=== PATIENT | female | born 1970 | race American Indian/Alaskan Native ===

== ENCOUNTER 2021-09-19 10:28 | Day surgery (SDC) | payer BC ==
--- NOTE | 2021-09-19 07:47 | History and Physical Report ---
History of Present Illness Date of examination: 09/17/21 Chief complaint: dysfunctional uterine bleeding, fibroids, anemia History of present illness: Pt is a 51 year old female who presents for surgical management of dysfunctional uterine bleeding and fibroids. Past History Past Medical History: hematologic disorders (anemia ) Past Surgical History: CABLE [employer]/uterine surgery (tubal ligation ) Family/Genetic History: hypertension Social history: no significant social history - Obstetrical History : 2 Para: 2 Hx # Term Pregnancies: 2 Number of Pregnancies: 0 Spontaneous Abortions: 0 Induced : 0 Number of Living Children: 2 Medications and Allergies Allergies Allergy/AdvReac Type Severity Reaction Status Date / Time No Known Allergies Allergy Unverified 09/12/21 10:38 Home Medications Medication Instructions Recorded Confirmed Last Taken Type RX: No Known Home Medications [No 09/12/21 09/12/21 Unknown History Reported Home Medications] Active Meds: Active Medications Lactated Ringer's (Lactated Ringers) 1,000 mls @ 75 mls/hr IV DIRECT KENNEDY Cefazolin Sodium (Ancef/Sterile Water 2 Gm/20 Ml) 2 gm in 20 mls @ 80 mls/hr IV PREOP NR; Protocol Review of Systems All systems: negative - Physical Exam Breasts: Positive: deferred Cardiovascular: Regular rate Lungs: Positive: Clear to auscultation Abdomen: Positive: soft Extremities: Positive: normal Results All other labs normal. Ultrasound: report reviewed, other (06/29/21: Uterus 9.1x6.4x7.1 cm; anterior fundal fibroid 3.7 cm. Fibroid anterior lower uterine segment 3.2 cm, posterior lower uterine segment 3.2 cm. EMS distorted. ) Assessment and Plan A: Dysfunctional Uterine Bleeding Fibroid Uterus P: Exam under anesthesia, hysteroscopy, Myosure endometrial sampling, possible Myosure myomectomy, Novasure endometrial ablation and other indicated procedures
[~2021-09-19 10:28] MED LIST: LACTATED RINGERS 1,000 ML IV SCH; ceFAZolin/Water 2 GM/20 ML 2 GM/20 ML SYRINGE IV NR
--- NOTE | 2021-09-19 11:14 | Anesthesia Day of Surgery ---
Anesthesia Day of Surgery - Day of Surgery Patient Examined: Yes Patient H&P Reviewed: Yes Patient is NPO: Yes
--- NOTE | 2021-09-19 11:15 | Anesthesia Consultation ---
Anesthesia Consult and Med Hx Date of service: 09/19/21 - Airway Anesthetic Teeth Evaluation: Caps ROM Head & Neck: Adequate Mental/Hyoid Distance: Adequate Mallampati Class: Class III Intubation Access Assessment: Possibly Difficult - Pre-Operative Health Status ASA Pre-Surgery Classification: ASA1 Proposed Anesthetic Plan: General - Pulmonary Hx Smoking: No Hx Sleep Apnea: No - Central Nervous System Hx Psychiatric Problems: No - Gastrointestinal Hx Gastroesophageal Reflux Disease: No - Hematic Hx Anemia: Yes Hx Sickle Cell Disease: Yes (TRAIT) - Other Systems Hx Cancer: No
[2021-09-19] MEDS ORDERED: MIDAZOLAM 2 MG/2 ML INJ IV PRN (11:27)
[2021-09-19] MEDS ORDERED: HYDROmorphone 1 MG/1 ML INJ IV PRN ×2 (11:30)
[2021-09-19] MEDS ORDERED: ONDANSETRON 4 MG/2 ML INJ IV PRN (12:00)
[2021-09-19] MEDS ORDERED: LIDOCAINE MPF (2%) 20 MG/1 ML VIAL 5 ML ONE (12:40)
[2021-09-19] MEDS ORDERED: propofoL 200 MG/20 ML VIAL IV ONE (12:41)
[2021-09-19] MEDS ORDERED: fentaNYL 100 MCG/2 ML INJ ONE (12:41)
[2021-09-19 13:10] LABS: Hematocrit 35.2 % (30.3-42.9); Hemoglobin 12.1 gm/dl (10.1-14.3); Mean Corpuscular HGB Conc 34 % (30-34); Mean Corpuscular Volume 90 fl (79-97); Platelet Count 299 K/mm3 (140-440); Red Blood Count 3.91 M/mm3 (3.65-5.03); Red Cell Distribution Width 13.7 % (13.2-15.2)
[2021-09-19] MEDS ORDERED: SILVER NITRATE APPLICATOR 1 EA TP ONE (13:39)
[2021-09-19] MEDS ORDERED: ePHEDrine SULFATE 50 MG/1 ML INJ ONE (13:48)
[2021-09-19] MEDS ORDERED: ONDANSETRON 4 MG/2 ML INJ ONE (14:34)
[2021-09-19] MEDS ORDERED: KETOROLAC 30 MG/1 ML INJ ONE (14:34)
[2021-09-19] MEDS ORDERED: LACTATED RINGERS 1,000 ML ONE (14:34)
[2021-09-19] MEDS ORDERED: dexAMETHasone 20 MG/5 ML VIAL ONE (14:34)
--- NOTE | 2021-09-19 14:35 | Operative Report ---
Operative Report Operative Report: Date of Procedure: September 19, 2021 Preoperative Diagnosis: 1) Dysfunctional Uterine Bleeding 2) Fibroid Uterus 3) Anemia Postoperative Diagnosis: Same Procedure: 1) Hysteroscopy 2) Myosure polypectomy and endometrial sampling 3) Dilation and Curettage 4) Novasure endometrial ablation Surgeon: Devi Stanton MD Findings: 1) Anteverted uterus that sounded to 9 cm 2) 2-3 cm polyp emanating from right side of endometrial cavity, otherwise smooth endometrium Anesthesia: GETA EBL: 25 mL Deficit: 200 mL Urine output: 350 mL, clear prior to the procedure Specimen: Endometrial polyp and curettings to pathology Complications: None. Counts correct x 2 Disposition: Stable to PACU Indication for Procedure: The patient is a 51 year old who presents for surgical management of dysfunctional uterine bleeding and fibroids Operation in detail: After the risks, complications, alternatives and benefits were signed to the patient she gave informed consent for the procedure. She was subsequently taken to the operating room with her IV noted to be running well and placed in the dorsal supine position. SCDs were noted to be in place and functioning. General anesthesia was then induced without difficulty. The patient was then placed in the dorsal lithotomy position and prepped and draped in normal sterile fashion. A timeout was performed. An exam under anesthesia revealed an anteverted uterus. The bladder was then drained with a catheter yielding 350 mL of clear urine. An open sided bivalve speculum was placed into the vagina for adequate visualization of the cervix. A single-tooth tenaculum was placed on the anterior lip of the cervix for traction. The uterus was then gently sounded to 9 cm. The cervix was then serially dilated with Stark dilators to a #19. The hysteroscope was then introduced into the uterine cavity with findings of an endometrial polyp and an othewise smooth endometrium. At this time, the Myosure Reach device was introduced to perform a polypectomy and sample the endometrial cavity per protocol. Next a sharp curettage was performed and the curettings were sent to pathology. Subsequently all instruments were removed from the uterus atraumatically. At this time, attention was turned to the endometrial ablation. An open sided speculum was then placed into the vagina for adequate visualization of the cervix. The anterior lip of the cervix was then grasped with a tenaculum for traction. The cervical length was then sounded to 4 cm and the uterus was then sounded to 9 cm. The cavity length was then noted to be 5 cm. The disposable NovaSure device was connected to the RF controller. The NovaSure disposable device was deployed to the locked position and noted to fully extend. The device was then placed in the unlocked position. The disposable device was then inserted into the uterine cavity with traction on the tenaculum. The device was then seated per protocol. After moving the device back 0.5 cm, the device was moved superiorly and inferiorly and rotated clockwise and counterclockwise to 45. The cavity width at this time was noted to be 4.4 cm. The cervical collar was then advanced to the cervix. The cavity assessment was then initiated and passed. The ablation procedure was then initiated and lasted for 59 seconds. The cervical collar was moved away from the cervix, the device was moved to the unlocked position, and the disposable NovaSure device was removed from the uterine cavity. The hysteroscope was reintroduced to visualize the charred endometrial cavity. At this time the single-tooth tenaculum was removed from the cervix. The tenaculum puncture sites were hemostatic with use of pressure. All instruments were removed from the vagina and the procedure was ended. The patient was replaced into the dorsal supine position and extubated without difficulty. She was subsequently taken to the PACU in stable condition. She tolerated the procedure well. All counts were correct 2.
--- NOTE | 2021-09-19 14:35 | Short Stay Summary ---
Short Stay Documentation Date of service: 09/19/21 - History H&P: dictated Social history: no significant social history - Allergies and Medications Current Medications: Allergies No Known Allergies Allergy (Unverified 09/12/21 10:38) Home Medications Medication Instructions Recorded Confirmed Last Taken Type RX: No Known Home Medications [No 09/12/21 09/12/21 Unknown History Reported Home Medications] Active Medications Hydromorphone HCl (Hydromorphone 1 Mg/1 Ml Inj) 0.25 mg IV Q10MIN PRN PRN Reason: Pain, Moderate (4-6) Stop: 09/19/21 18:00 Hydromorphone HCl (Hydromorphone 1 Mg/1 Ml Inj) 0.5 mg IV Q10MIN PRN PRN Reason: Pain , Severe (7-10) Stop: 09/19/21 18:00 Lactated Ringer's (Lactated Ringers) 1,000 mls @ 75 mls/hr IV DIRECT KENNEDY Stop: 09/19/21 23:00 Last Admin: 09/19/21 11:20 Dose: 75 mls/hr Cefazolin Sodium (Ancef/Sterile Water 2 Gm/20 Ml) 2 gm in 20 mls @ 80 mls/hr IV PREOP NR; Protocol Stop: 09/19/21 20:00 Midazolam HCl (Midazolam 2 Mg/2 Ml Inj) 2 mg IV PREOP PRN PRN Reason: Anxiety Stop: 09/19/21 20:00 Last Admin: 09/19/21 11:37 Dose: 2 mg Ondansetron HCl (Ondansetron 4 Mg/2 Ml Inj) 4 mg IV ONCE PRN PRN Reason: Nausea And Vomiting Stop: 09/19/21 18:00 - Physical exam Breasts: deferred - Brief post op/procedure progress note Date of procedure: 09/19/21 Pre-op diagnosis: DUB, Fibroid Uterus, Anemia Post-op diagnosis: other (Endometrial Polyp) Procedure: 1) Hysteroscopy 2) Myosure polypectomy and endometrial sampling 3) Dilation and Curettage 4) Novasure endometrial ablation Anesthesia: GETA Findings: 1) Anteverted uterus that sounded to 9 cm 2) 2-3 cm polyp emanating from right side of endometrial cavity, otherwise smooth endometrium Surgeon: DISHA STANTON Estimated blood loss: minimal (25mL) Pathology: list (endometrial polyp and curettings) Specimen disposition: to lab Condition: stable - Hospital course Hospital course: This patient underwent hysteroscopy, MyoSure polypectomy and endometrial sampling, dilation and curettage, NovaSure endometrial ablation which he tolerated well. She was observed in the postanesthesia unit until she met discharge criteria. She will follow-up in 1 week in the office with Dr. Stanton. She received her prescriptions preoperatively. - Disposition Condition at discharge: Stable Disposition: 01 HOME / SELF CARE / HOMELESS - Discharge Diagnoses (1) DUB (dysfunctional uterine bleeding) Status: Acute (2) Anemia Status: Acute Qualifiers: Anemia type: unspecified type Qualified Code(s): D64.9 - Anemia, unspecified (3) Fibroid uterus Status: Acute (4) Endometrial polyp Status: Acute Short Stay Discharge Plan Activity: other (Nothing in vagina, no sex, no tub baths x 4 wks ) Weight Bearing Status: Full Weight Bearing Diet: regular Follow up with: PREET PINTO MD [Primary Care Provider] - 7 Days DISHA STANTON MD [Staff Physician] - 7 Days
--- NOTE | 2021-09-19 15:09 | Post Anesthesia Evaluation ---
- Post Anesthesia Evaluation Patient Participated: Yes Airway Patent: Yes Stable Respiratory Function: Yes Nausea/Vomiting: No Temp > 96.8F: Yes Pain Manageable: Yes Adequeate Hydration: Yes Anesthesia Complications: No Block Receding Appropriately: Not Applicable Patient on Ventilator: No
[2021-09-19 15:33] VITALS: BP 150/82
== END 2021-09-19 16:10 | disposition home or self-care (01) ==
LOC: OR 10:28
PROVIDERS: ATTEND Obstetrics & Gynecology
DX: N93.8 Other specified abnormal uterine and vaginal bleeding (principal); D64.9 Anemia, unspecified; D25.9 Leiomyoma of uterus, unspecified; N84.0 Polyp of corpus uteri; Z98.51 Tubal ligation status; Z98.890 Other specified postprocedural states
CPT/HCPCS: 36415; 58563; 81025; 85027; 88305; C1782; J0690; J1100; J1885; J2250; J2405; J2704; J3010; J3490; J7120